=== PATIENT | female | born 1940 | race Caucasian/White ===

== ENCOUNTER → 2020-03-01 16:47 | Outpatient (CLI) | payer MEDICARE, MEDICAID ==
[2020-03-01 18:18] LABS: THYROID STIMULATING HORMONE 1.32 uIU/mL (0.36-3.74)
== END | disposition home or self-care (01) ==
LOC: D.LAB 16:47
PROVIDERS: ATTEND Psychiatry & Neurology Neurology
DX: R41.3 Other amnesia (principal)